=== PATIENT | female | born 1995 | race Caucasian/White ===

== ENCOUNTER → 2023-12-18 14:57 | Outpatient (REF) | payer OTHER, SELFPAY | LOC: RAD 14:57 | PROVIDERS: ATTENDING PHYSICIAN Nurse Practitioner Family; FAMILY PHYSICIAN Emergency Medicine | DX: O26.851 Spotting complicating pregnancy, first trimester (principal) | CPT/HCPCS: 76801 ==

== ENCOUNTER → 2024-01-09 07:48 | Outpatient (REF) | payer OTHER, SELFPAY | LOC: PNTC 07:48 | PROVIDERS: ATTENDING PHYSICIAN Obstetrics & Gynecology | DX: O30.049 Twin pregnancy, dichorionic/diamniotic, unspecified trimester (principal); O99.210 Obesity complicating pregnancy, unspecified trimester; O10.019 Pre-existing essential hypertension complicating pregnancy, unspecified trimester | CPT/HCPCS: 76801; 76802; 76813; 76814 ==

== ENCOUNTER → 2024-01-30 13:08 | Outpatient (REF) | payer OTHER, SELFPAY | LOC: PNTC 13:08 | PROVIDERS: ATTENDING PHYSICIAN Obstetrics & Gynecology | DX: O30.039 Twin pregnancy, monochorionic/diamniotic, unspecified trimester (principal); O99.210 Obesity complicating pregnancy, unspecified trimester; O30.049 Twin pregnancy, dichorionic/diamniotic, unspecified trimester; O10.019 Pre-existing essential hypertension complicating pregnancy, unspecified trimester | CPT/HCPCS: 76805; 76810 ==

== ENCOUNTER → 2024-02-16 11:34 | Outpatient (REF) | payer OTHER, SELFPAY ==
--- NOTE | 2024-02-16 11:56 | PN.DIAED06 ---
Meal Plan - Gestational
- Breakfast
Gestational Diabetes Meal Plan Name: 1800 calories
Breakfast - Total Carbohydrate (grams): 30
Breakfast - Starch Carbohydrate: 1
Breakfast - Fruit Carbohydrate: 0
Breakfast - Milk Carbohydrate: 1
Breakfast - Nonstarchy Vegetables: Yes
Breakfast - Meat/Protein: 1
Breakfast - Fat: 2
- Morning Snack
Morning Snack - Total Carbohydrate (grams): 30
Morning Snack - Starch Carbohydrate: 1
Morning Snack - Fruit Carbohydrate: 0
Morning Snack - Milk Carbohydrate: 1
Morning Snack - Nonstarchy Vegetables: Yes
Morning Snack - Meat/Protein: 0.5
Morning Snack - Fat: 0
- Lunch
Lunch - Total Carbohydrate (grams): 45
Lunch - Starch Carbohydrate: 2
Lunch - Fruit Carbohydrate: 1
Lunch - Milk Carbohydrate: 0
Lunch - Nonstarchy Vegetables: Yes
Lunch - Meat/Protein: 2
Lunch - Fat: 1
- Afternoon Snack
Afternoon Snack - Total Carbohydrate (grams): 30
Afternoon Snack - Starch Carbohydrate: 1
Afternoon Snack - Fruit Carbohydrate: 1
Afternoon Snack - Milk Carbohydrate: 0
Afternoon Snack - Nonstarchy Vegetables: Yes
Afternoon Snack - Meat/Protein: 1
Afternoon Snack - Fat: 0
- Dinner
Dinner - Total Carbohydrate (grams): 45
Dinner - Starch Carbohydrate: 2
Dinner - Fruit Carbohydrate: 0
Dinner - Milk Carbohydrate: 1
Dinner - Nonstarchy Vegetables: Yes
Dinner - Meat/Protein: 2
Dinner - Fat: 2
- Evening Snack
Evening Snack - Total Carbohydrate (grams): 30
Evening Snack - Starch Carbohydrate: 1
Evening Snack - Fruit Carbohydrate: 0
Evening Snack - Milk Carbohydrate: 1
Evening Snack - Nonstarchy Vegetables: Yes
Evening Snack - Meat/Protein: 1
Evening Snack - Fat: 1
--- NOTE | 2024-02-16 13:14 | PN.DIAED02 ---
Referral
DSME Class Series Code: GDM
Referred For: Gestational Diabetes Self-Management Training, Medical Nutrition Therapy, Self-Blood Glucose Monitoring
PHI Release Authorization Form Signed: Yes
Demographic
(1) Gestational diabetes mellitus in , unspecified control
Status: Acute
Qualifiers:
Gestational diabetes mellitus control: diet-controlled Trimester: second trimester Qualified Code(s): O24.410 - Gestational diabetes mellitus in , diet controlled
Code(s): O24.419 - Gestational diabetes mellitus in , unspecified control
Patient's primary language-: Estonian
Education: College degree
Occupation: Homemaker
- Social
Primary Support Person: Self & spouse
Glycemic Control
- Blood Glucose Monitoring Assessment
Monitor Brands: Other (Cont[employer] Next)
Time: fasting, after breakfast, after lunch, after dinner
Medical History of Diabetes
Family Diabetes History: Mother
Previous Diabetes Education: Yes
How long ago?: 1-5 years ago
Previous visit with Dietitian: Yes
How long ago?: 1-5 years ago
Reason for visiting a Dietitian:
Gestational Diabetes
Complications/Comorbidity/Specialist: Hypertension
- Female Specific Medical History
Currently ?: Yes
Receiving care?: Yes
Estimated date of Confinement: 07/25/24
Self-Care
- Tobacco Usage
Do you now, or have you ever smoked?: Never smoked
- Alcohol & Drugs Usage
Drinks Alcohol: No
Uses Recreational Drugs: No
Care Plan
- Education Needs
Patient Education Needs: Monitoring, Nutritional management, Preconception care//gestational diabetes management
Recommended Diabetes Training Program based on assessment: Gestational Diabetes Management
- Plan of Care
Plan of Care:
Met with Ms. Deutsch today, , currently at 20 weeks of gestation with twins. Pt here today for medical nutrition therapy. She reports a history of diet-controlled gestational diabetes with her first , was seen by a RD and counseled on
medical Nutrition.
Explained glucose metabolism in body and what occurs during to cause increase blood sugar. Discussed importance of keeping BS well controlled to avoid complications to the babies during and after (macrosomia, hypoglycemia). Explained
to Nelly that she is at increased risk of developing T2DM in the future. Nelly reports that she has a glucose monitor at home and has been monitoring her blood sugars 2 hrs after each meal since dx of GDM but her sugars with her glucometer
have been significantly higher on her Accu-Cheks than on her lab values. These ranged between 25 to 40 mg/dL higher. Therefore, she was provided a new Glucose monitor- [employer] Next and sent scripts to her [facility] in [place], [place].
Provided instructions and reviewed proper testing technique, testing sites and testing pattern, noted for blood sugar of 73 2 hrs after breakfast.
She is aware to continue testing FBS and 2 hr pp each meal. Expected results for FBS <95 mg/dl and 2 hr pp <120 mg/dl.
Nelly states that her diet consists mainly of carbs and some fruits but not a lot of non-starchy veggies. She eats lots of pasta, bread and potatoes for dinner, sometimes burgers for lunch. Explained high carbohydrate diet and macronutrients and
the effect each has on blood sugar.
Provided with 1800 chanda GDM meal plan. She was educated on how to read a nutritional fact label and look at total CHO in relation to serving size. No fruit or fruit juice until noontime. Provided her with a handout on snacks as well as 'Choose Your
Foods' booklet. A Log sheet was provided for her to record her blood sugar results, she will send her 7 day meal log with all her FBG and 2hr Post prandial glucose numbers to this office for review.
In addition, she will send all her glucose readings to Kelsie at [facility] every Monday. She was encouraged to keep a regular activity schedule and will reach out should she require insulin.
== END ==
LOC: DES 11:34
PROVIDERS: ATTENDING PHYSICIAN Obstetrics & Gynecology; FAMILY PHYSICIAN Emergency Medicine
DX: O24.419 Gestational diabetes mellitus in pregnancy, unspecified control (principal)
CPT/HCPCS: 99078

== ENCOUNTER → 2024-02-27 13:15 | Outpatient (REF) | payer OTHER, SELFPAY | LOC: PNTC 13:15 | PROVIDERS: ATTENDING PHYSICIAN Obstetrics & Gynecology | DX: O30.049 Twin pregnancy, dichorionic/diamniotic, unspecified trimester (principal); O99.210 Obesity complicating pregnancy, unspecified trimester; O16.9 Unspecified maternal hypertension, unspecified trimester | CPT/HCPCS: 76811; 76812 ==

== ENCOUNTER → 2024-03-28 13:14 | Outpatient (REF) | payer OTHER, SELFPAY | LOC: PNTC 13:14 | PROVIDERS: ATTENDING PHYSICIAN Obstetrics & Gynecology; PRIMARYCARE PHYSICIAN Emergency Medicine | DX: O30.049 Twin pregnancy, dichorionic/diamniotic, unspecified trimester (principal); O99.210 Obesity complicating pregnancy, unspecified trimester; O10.119 Pre-existing hypertensive heart disease complicating pregnancy, unspecified trimester | CPT/HCPCS: 76816 ==

== ENCOUNTER → 2024-04-29 08:44 | Outpatient (REF) | payer OTHER, SELFPAY | LOC: PNTC 08:44 | PROVIDERS: ATTENDING PHYSICIAN Obstetrics & Gynecology | DX: O99.210 Obesity complicating pregnancy, unspecified trimester (principal); O30.049 Twin pregnancy, dichorionic/diamniotic, unspecified trimester | CPT/HCPCS: 76816 ==

== ENCOUNTER 2024-05-01 20:14 | Observation (INO) | payer OTHER, SELFPAY ==
[2024-05-01 20:32] VITALS: BP 131/83; BMI 35.3
[2024-05-01 21:24] LABS: Glucose - Point of Care 85 mg/dl (70-99)
[2024-05-01 21:28] LABS: Hematocrit 32.3 % (37.0-47.0); Hemoglobin 10.9 g/dL (12.0-16.0); Mean Corp Hgb Conc. 33.7 g/dL (33.0-37.0); Mean Corpuscular Hgb 28.4 pg (27.0-31.0); Mean Corpuscular Volume 84.1 fL (81.0-99.0); Mean Platelet Volume 10.5 fL (7.4-10.4); Platelet Count 239 10^3/uL (130-400); Red Blood Cell Count 3.84 10^6/uL (4.20-5.40); Red Cell Dist. Width 13.1 % (11.5-14.5); White Blood Cell Count 9.4 10^3/uL (4.8-10.8)
[2024-05-01 21:39] LABS: Fibrinogen 517 MG/DL (199-459); PT 14.2 Sec (11.4-14.6)
[2024-05-01 23:19] LABS: Urine Albumin Negative (Neg - Trace); Urine Bilirubin Negative (Negative); Urine Character Clear (Clear); Urine Color Yellow; Urine Glucose Negative (Negative); Urine Ketone 3+ (Negative); Urine Leukocyte Negative (Negative); Urine Nitrite Negative (Negative); Urine Occult Blood Trace (Negative); Urine Urobilinogen Negative (Neg - 1+)
[2024-05-02 00:16] LABS: Urine Mucus Many; Urine Squamous Cell >30 /LPF (Few)
[2024-05-02 00:17] LABS: Urine Bacteria Many (Negative)
== END 2024-05-02 01:31 | disposition home or self-care (01) ==
LOC: LDRP 20:14
PROVIDERS: Student in an Organized Health Care Education/Training Program; ADMITTING PHYSICIAN Obstetrics & Gynecology; FAMILY PHYSICIAN Emergency Medicine
DX: R10.11 Right upper quadrant pain (principal); W01.198A Fall on same level from slipping, tripping and stumbling with subsequent striking against other object, initial encounter; Y93.01 Activity, walking, marching and hiking; Y92.009 Unspecified place in unspecified non-institutional (private) residence as the place of occurrence of the external cause; O24.410 Gestational diabetes mellitus in pregnancy, diet controlled; Z3A.29 29 weeks gestation of pregnancy; O10.013 Pre-existing essential hypertension complicating pregnancy, third trimester; O30.043 Twin pregnancy, dichorionic/diamniotic, third trimester; O99.213 Obesity complicating pregnancy, third trimester
CPT/HCPCS: 81003; 81015; 82962; 85027; 85384; 85461; 85610; 85730; 86850; 86900; 86901; 87086

== ENCOUNTER → 2024-05-22 09:18 | Outpatient (REF) | payer OTHER, SELFPAY | LOC: PNTC 09:18 | PROVIDERS: ATTENDING PHYSICIAN Student in an Organized Health Care Education/Training Program | DX: O30.049 Twin pregnancy, dichorionic/diamniotic, unspecified trimester (principal) | CPT/HCPCS: 59025; 76815 ==

== ENCOUNTER → 2024-05-30 07:47 | Outpatient (REF) | payer OTHER, SELFPAY | LOC: PNTC 07:47 | PROVIDERS: ATTENDING PHYSICIAN Obstetrics & Gynecology | DX: O30.049 Twin pregnancy, dichorionic/diamniotic, unspecified trimester (principal) | CPT/HCPCS: 59025; 76816 ==

== ENCOUNTER → 2024-06-05 07:55 | Outpatient (REF) | payer OTHER, SELFPAY | LOC: PNTC 07:55 | PROVIDERS: ATTENDING PHYSICIAN Obstetrics & Gynecology | DX: O30.049 Twin pregnancy, dichorionic/diamniotic, unspecified trimester (principal) | CPT/HCPCS: 59025; 76815 ==

== ENCOUNTER → 2024-06-13 08:49 | Outpatient (REF) | payer OTHER, SELFPAY | LOC: PNTC 08:49 | PROVIDERS: ATTENDING PHYSICIAN Obstetrics & Gynecology | DX: O30.049 Twin pregnancy, dichorionic/diamniotic, unspecified trimester (principal) | CPT/HCPCS: 59025; 76815 ==

== ENCOUNTER 2024-06-20 08:30 | Observation (INO) | payer OTHER, SELFPAY ==
[2024-06-20 09:00] LABS: % Basophils 0.3 % (0-2); % Eosinophils 0.3 % (0-6); % Immature Granulocytes 0.4 % (0-0.5); % Lymphocytes 28.5 % (20.5-51.1); % Monocytes 6.7 % (1.7-9.3); % Neutrophils 63.8 % (42.2-75.2); Absolute Monocytes 0.5 10^3/uL (0.1-0.6); Absolute Neutrophils 4.6 10^3/uL (1.4-6.5); Hematocrit 35.9 % (37.0-47.0); Hemoglobin 11.3 g/dL (12.0-16.0); Mean Corp Hgb Conc. 31.5 g/dL (33.0-37.0); Mean Corpuscular Volume 82.5 fL (81.0-99.0); Mean Platelet Volume 10.7 fL (7.4-10.4); Nucleated Red Blood Cells % 0 %; Platelet Count 212 10^3/uL (130-400); Red Blood Cell Count 4.35 10^6/uL (4.20-5.40); Red Cell Dist. Width 14.3 % (11.5-14.5); White Blood Cell Count 7.1 10^3/uL (4.8-10.8)
[2024-06-20 09:20] VITALS: BP 146/79; BMI 35.8
[2024-06-20 09:21] LABS: ALT (SGPT) 12 U/L (0-35); AST (SGOT) 19 U/L (14-36); Albumin 3.7 g/dl (3.5-5.0); Alkaline Phosphatase 249 U/L (38-126); Blood Urea Nitrogen 6 mg/dl (7-17); Calcium 9.1 mg/dl (8.4-10.2); Carbon Dioxide 22 mmol/L (22-30); Chloride 106 mmol/L (98-107); Glucose 72 mg/dl (70-99); Potassium 4.1 mmol/L (3.5-5.1); Sodium 137 mmol/L (135-145); Total Bilirubin 0.3 mg/dl (0.2-1.3); Total Protein 6.3 g/dl (6.3-8.2); eGFR > 60.00
[2024-06-20 09:33] LABS: Urine Albumin Negative (Neg - Trace); Urine Bilirubin Negative (Negative); Urine Character Clear (Clear); Urine Color Yellow; Urine Glucose Negative (Negative); Urine Ketone Negative (Negative); Urine Leukocyte Trace (Negative); Urine Nitrite Negative (Negative); Urine Occult Blood Negative (Negative); Urine Urobilinogen Negative (Neg - 1+)
[2024-06-20 09:49] LABS: Protein/creatinine Ratio 0.1; Urine Protein 7 mg/dl
[2024-06-20 10:33] LABS: Urine Squamous Cell >30 /LPF (Few)
[2024-06-20 10:34] LABS: Urine Amorphous Seen; Urine Red Blood Cell 0-2 /HPF (0-2); Urine White Cell 0-2 /HPF (0-5)
== END 2024-06-20 11:00 | disposition home or self-care (01) ==
LOC: PNTC-IN 08:30
PROVIDERS: ADMITTING PHYSICIAN Obstetrics & Gynecology; ATTENDING PHYSICIAN Obstetrics & Gynecology
DX: R10.12 Left upper quadrant pain (principal); Z3A.36 36 weeks gestation of pregnancy; O30.043 Twin pregnancy, dichorionic/diamniotic, third trimester; W01.0XXA Fall on same level from slipping, tripping and stumbling without subsequent striking against object, initial encounter; Y93.01 Activity, walking, marching and hiking; Y92.009 Unspecified place in unspecified non-institutional (private) residence as the place of occurrence of the external cause; O24.410 Gestational diabetes mellitus in pregnancy, diet controlled; O99.213 Obesity complicating pregnancy, third trimester; O10.013 Pre-existing essential hypertension complicating pregnancy, third trimester
CPT/HCPCS: 59025; 76815; 80053; 81003; 81015; 82570; 84156; 85025; 86850; 86900; 86901; G0378

== ENCOUNTER → 2024-06-24 08:19 | Outpatient (REF) | payer OTHER, SELFPAY | LOC: PNTC 08:19 | PROVIDERS: ATTENDING PHYSICIAN Obstetrics & Gynecology | DX: O30.049 Twin pregnancy, dichorionic/diamniotic, unspecified trimester (principal) | CPT/HCPCS: 36415; 59025; 76816; 76820 ==

== ENCOUNTER → 2024-06-27 08:25 | Outpatient (REF) | payer OTHER, SELFPAY | LOC: PNTC 08:25 | PROVIDERS: ATTENDING PHYSICIAN Obstetrics & Gynecology | DX: O30.049 Twin pregnancy, dichorionic/diamniotic, unspecified trimester (principal) | CPT/HCPCS: 59025; 76815 ==

== ENCOUNTER → 2024-07-01 08:25 | Outpatient (REF) | payer OTHER, SELFPAY | LOC: PNTC 08:25 | PROVIDERS: ATTENDING PHYSICIAN Obstetrics & Gynecology; PRIMARYCARE PHYSICIAN Emergency Medicine | DX: O30.049 Twin pregnancy, dichorionic/diamniotic, unspecified trimester (principal) | CPT/HCPCS: 59025; 76815 ==

== ENCOUNTER 2024-07-04 08:08 | Inpatient (IN) | payer OTHER, SELFPAY ==
[2024-07-04 08:32] VITALS: BP 158/104; BMI 36.4
[2024-07-04 09:05] LABS: % Basophils 0.3 % (0-2); % Eosinophils 0.4 % (0-6); % Immature Granulocytes 0.4 % (0-0.5); % Lymphocytes 25.3 % (20.5-51.1); % Monocytes 4.9 % (1.7-9.3); % Neutrophils 68.7 % (42.2-75.2); Absolute Lymphocytes 1.9 10^3/uL (1.2-3.4); Absolute Monocytes 0.4 10^3/uL (0.1-0.6); Absolute Neutrophils 5.1 10^3/uL (1.4-6.5); Hematocrit 35.7 % (37.0-47.0); Hemoglobin 11.2 g/dL (12.0-16.0); Mean Corp Hgb Conc. 31.4 g/dL (33.0-37.0); Mean Corpuscular Hgb 25.5 pg (27.0-31.0); Mean Corpuscular Volume 81.3 fL (81.0-99.0); Mean Platelet Volume 10.7 fL (7.4-10.4); Nucleated Red Blood Cells % 0 %; Platelet Count 248 10^3/uL (130-400); Red Blood Cell Count 4.39 10^6/uL (4.20-5.40); Red Cell Dist. Width 14.6 % (11.5-14.5); White Blood Cell Count 7.4 10^3/uL (4.8-10.8)
[2024-07-04 09:08] LABS: Glucose - Point of Care 69 mg/dl (70-99)
[2024-07-04 09:16] LABS: ALT (SGPT) 16 U/L (0-35); AST (SGOT) 27 U/L (14-36); Albumin 3.7 g/dl (3.5-5.0); Alkaline Phosphatase 280 U/L (38-126); Blood Urea Nitrogen 9 mg/dl (7-17); Carbon Dioxide 19 mmol/L (22-30); Chloride 106 mmol/L (98-107); Estimated Creatinine Clearance > 125 ml/min; Glucose 74 mg/dl (70-99); Potassium 4.3 mmol/L (3.5-5.1); Sodium 134 mmol/L (135-145); Total Bilirubin 0.4 mg/dl (0.2-1.3); Total Protein 6.4 g/dl (6.3-8.2); eGFR > 60.00
[2024-07-04] MEDS: PENICILLIN 110 UNITS IV (09:58)
[2024-07-04] MEDS: PITOCIN 30 UNITS/NSS 500 ML IV (09:59)
[2024-07-04 10:28] LABS: Protein/creatinine Ratio 0.2; Urine Protein 11 mg/dl
[2024-07-04 11:04] LABS: Glucose - Point of Care 74 mg/dl (70-99)
[2024-07-04] MEDS: SUBLIMAZE 100 MCG EPIDURAL (13:30)
[2024-07-04] MEDS: FENTANYL/BUPIVACAINE 100 EPIDURAL (13:30)
[2024-07-04] MEDS: PENICILLIN 55 UNITS IV (14:10)
[2024-07-04] MEDS: TUMS CHEWABLE TABLET 400 MG PO (14:12)
[2024-07-04] MEDS: CYTOTEC 800 MCG RECTAL (16:03)
[2024-07-04] MEDS: TRANEXAMIC ACID 100 IV (16:10)
[2024-07-04] MEDS: HEMABATE 250 MCG IM (16:10)
[2024-07-04 17:03] LABS: % Basophils 0.2 % (0-2); % Eosinophils 0.2 % (0-6); % Immature Granulocytes 0.5 % (0-0.5); % Monocytes 4.7 % (1.7-9.3); % Neutrophils 71.4 % (42.2-75.2); Absolute Monocytes 0.4 10^3/uL (0.1-0.6); Absolute Neutrophils 6.3 10^3/uL (1.4-6.5); Hematocrit 31.2 % (37.0-47.0); Hemoglobin 9.7 g/dL (12.0-16.0); Mean Corp Hgb Conc. 31.1 g/dL (33.0-37.0); Mean Corpuscular Hgb 25.7 pg (27.0-31.0); Mean Corpuscular Volume 82.5 fL (81.0-99.0); Mean Platelet Volume 10.6 fL (7.4-10.4); Nucleated Red Blood Cells % 0 %; Platelet Count 210 10^3/uL (130-400); Red Blood Cell Count 3.78 10^6/uL (4.20-5.40); Red Cell Dist. Width 14.6 % (11.5-14.5); White Blood Cell Count 8.9 10^3/uL (4.8-10.8)
[2024-07-04] MEDS: ANCEF 10 IV (17:17)
[2024-07-04] MEDS: PROCARDIA XL (EXTENDED RELEASE) 30 MG PO (17:34)
[2024-07-04 18:02] LABS: APTT 23.8 Sec (23.4-35.0); Fibrinogen 477 MG/DL (199-459)
[2024-07-04 18:03] LABS: PT 13.7 Sec (11.4-14.6)
[2024-07-04] MEDS: PENICILLIN IV ×2 (18:45→22:30)
[2024-07-05] MEDS: MOTRIN 600 MG PO ×4 (00:34→22:53)
[2024-07-05] MEDS: TYLENOL 650 MG PO ×5 (00:34→22:54)
[2024-07-05 04:25] LABS: Hematocrit 26.9 % (37.0-47.0); Hemoglobin 8.5 g/dL (12.0-16.0); Mean Corp Hgb Conc. 31.6 g/dL (33.0-37.0); Mean Corpuscular Hgb 25.8 pg (27.0-31.0); Mean Corpuscular Volume 81.8 fL (81.0-99.0); Platelet Count 232 10^3/uL (130-400); Red Blood Cell Count 3.29 10^6/uL (4.20-5.40); Red Cell Dist. Width 14.6 % (11.5-14.5); White Blood Cell Count 13.3 10^3/uL (4.8-10.8)
[2024-07-05 04:37] LABS: ALT (SGPT) 13 U/L (0-35); AST (SGOT) 26 U/L (14-36); Albumin 2.8 g/dl (3.5-5.0); Alkaline Phosphatase 199 U/L (38-126); Blood Urea Nitrogen 5 mg/dl (7-17); Calcium 8.5 mg/dl (8.4-10.2); Carbon Dioxide 22 mmol/L (22-30); Chloride 105 mmol/L (98-107); Estimated Creatinine Clearance > 125 ml/min; Glucose 118 mg/dl (70-99); Potassium 3.9 mmol/L (3.5-5.1); Sodium 133 mmol/L (135-145); Total Bilirubin < 0.1 mg/dl (0.2-1.3); Total Protein 5.1 g/dl (6.3-8.2); eGFR > 60.00
[2024-07-05] MEDS: PROCARDIA XL (EXTENDED RELEASE) 30 MG PO (07:45)
[2024-07-05] MEDS: SENOKOT-S 1 TABLET PO (07:45)
[2024-07-05] MEDS: FEOSOL 325 MG PO (07:45)
[2024-07-06] MEDS: MOTRIN 600 MG PO ×2 (05:02→10:55)
[2024-07-06] MEDS: TYLENOL 650 MG PO ×2 (05:02→10:13)
[2024-07-06] MEDS: PROCARDIA XL (EXTENDED RELEASE) 30 MG PO ×2 (08:19→11:09)
[2024-07-06] MEDS: FEOSOL 325 MG PO (08:22)
[2024-07-08 18:05] LABS: Syphilis/T. pallidum Ab Reflex Negative (Negative)
== END 2024-07-06 13:45 | disposition home or self-care (01) | DRG 768 ==
LOC: LDRP 08:08
PROVIDERS: ADMITTING PHYSICIAN Student in an Organized Health Care Education/Training Program; CONSULT PHYSICIAN Anesthesiology; CONSULT PHYSICIAN Nurse Anesthetist, Certified Registered; CONSULT PHYSICIAN Registered Nurse; CONSULT PHYSICIAN Specialist; CONSULT PHYSICIAN Student in an Organized Health Care Education/Training Program
PROC: 0W3R7ZZ Control Bleeding in Genitourinary Tract, Via Natural or Artificial Opening (ICD-10-PCS; 2024-07-04)
PROC: 10E0XZZ Delivery of Products of Conception, External Approach (ICD-10-PCS; 2024-07-04)
PROC: 0KQM0ZZ Repair Perineum Muscle, Open Approach (ICD-10-PCS; 2024-07-04)
PROC: 10907ZC Drainage of Amniotic Fluid, Therapeutic from Products of Conception, Via Natural or Artificial Opening (ICD-10-PCS; 2024-07-04)
PROC: 3E0P7VZ Introduction of Hormone into Female Reproductive, Via Natural or Artificial Opening (ICD-10-PCS; 2024-07-04)
DX: O10.92 Unspecified pre-existing hypertension complicating childbirth (principal); Z37.2 Twins, both liveborn; O72.1 Other immediate postpartum hemorrhage; O30.043 Twin pregnancy, dichorionic/diamniotic, third trimester; Z3A.38 38 weeks gestation of pregnancy; O64.4XX0 Obstructed labor due to shoulder presentation, not applicable or unspecified; O99.214 Obesity complicating childbirth; E66.9 Obesity, unspecified; O24.420 Gestational diabetes mellitus in childbirth, diet controlled; O99.824 Streptococcus B carrier state complicating childbirth; O70.1 Second degree perineal laceration during delivery; O90.81 Anemia of the puerperium; D64.9 Anemia, unspecified
CPT/HCPCS: 88307; 80053; 82570; 82962; 84156; 85025; 85027; 85384; 85610; 85730; 86780; 86850; 86900; 86901

== ENCOUNTER 2024-09-10 09:12 | Emergency (ER) | payer OTHER, SELFPAY ==
[2024-09-10 09:21] VITALS: BP 153/96
[2024-09-10 10:06] LABS: % Basophils 0.5 % (0-2); % Eosinophils 0.9 % (0-6); % Immature Granulocytes 0.6 % (0-0.5); % Lymphocytes 36.3 % (20.5-51.1); % Monocytes 6.2 % (1.7-9.3); % Neutrophils 55.5 % (42.2-75.2); Absolute Eosinophils 0.1 10^3/uL (0-0.7); Absolute Immature Granulocytes 0.1 10^3/uL (0-0.05); Absolute Lymphocytes 3.1 10^3/uL (1.2-3.4); Absolute Monocytes 0.5 10^3/uL (0.1-0.6); Absolute Neutrophils 4.8 10^3/uL (1.4-6.5); Hematocrit 34.1 % (37.0-47.0); Hemoglobin 9.7 g/dL (12.0-16.0); Mean Corp Hgb Conc. 28.4 g/dL (33.0-37.0); Mean Corpuscular Hgb 21.8 pg (27.0-31.0); Mean Corpuscular Volume 76.6 fL (81.0-99.0); Mean Platelet Volume 9.8 fL (7.4-10.4); Nucleated Red Blood Cells % 0 %; Platelet Count 380 10^3/uL (130-400); Red Blood Cell Count 4.45 10^6/uL (4.20-5.40); Red Cell Dist. Width 15.6 % (11.5-14.5); White Blood Cell Count 8.6 10^3/uL (4.8-10.8)
[2024-09-10 10:14] LABS: HCG, Serum Qualitative Screen Negative
[2024-09-10 10:18] LABS: ALT (SGPT) 17 U/L (0-35); AST (SGOT) 18 U/L (14-36); Albumin 4.3 g/dl (3.5-5.0); Alkaline Phosphatase 78 U/L (38-126); Blood Urea Nitrogen 17 mg/dl (7-17); Calcium 9.8 mg/dl (8.4-10.2); Carbon Dioxide 24 mmol/L (22-30); Chloride 104 mmol/L (98-107); Glucose 94 mg/dl (70-99); Lipase 112 U/L (23-300); Potassium 4.4 mmol/L (3.5-5.1); Sodium 137 mmol/L (135-145); Total Bilirubin 0.4 mg/dl (0.2-1.3); Total Protein 6.9 g/dl (6.3-8.2); eGFR > 60.00
[2024-09-10 10:51] LABS: Anisocytosis 1+; Normal RBC Morphology No; Ovalocytes Slight
--- NOTE | 2024-09-10 11:12 | ED.GENMED ---
History of Present Illness
General
Chief Complaint: Abdominal Pain
Source: patient
Exam Limitations: none
Time Seen by Provider: 09/10/24 10:47
Nursing documentation reviewed up to this point in time: agreed with
History of Present Illness
History of Present Illness:
Patient is a 29 old female who is 2 months (vaginally delivered twins July 04) presents for sudden onset of right lower quadrant pain that started at 9 AM. She has had this similar pain in the past with a ruptured ovarian cyst. She
reports she presented because pain was significant for 30 minutes. She has since taken ibuprofen and pain has improved.
She started oral control 2 to 3 weeks ago. She denies any back pain UTI symptoms. She denies any back pain. Denies any recent fever or chills.
Past History
Past History
ED Past Medical History: Other (Ovarian cysts)
ED Past Surgical History: Gynecological
Social History
Tobacco: Non-smoker
Alcohol: Occasional
Personal: Single
Living: with roommate
Review of Systems
Review of Systems
Allergies reviewed?: Yes
All Other Systems: ROS reviewed and negative except as documented in HPI and ROS
Constitutional: Reports no symptoms; Denies fever, fatigue or chills
Respiratory: Reports no symptoms
Cardiac: Reports no symptoms
ABD/GI: Reports abdominal pain and other (now improved ); Denies nausea, vomiting or diarrhea
: Reports no symptoms; Denies flank pain, urgency or discharge
Musculoskeletal: Reports no symptoms
Skin: Reports no symptoms
Neurological: Reports no symptoms
Psychiatric: Reports no symptoms
Phy Exam
General Physical Exam
General Presentation: no apparent distress
General age: appears stated age
General Skin: warm and dry
General Habitus: normal
General Mental: alert
General Hydration: appears well hydrated
Gastrointestinal Exam
Gastrointestinal Exam: non tender and soft
Neurological Exam
Neurological Exam: alert and oriented x3
Musculoskeletal Exam
Musculoskeletal Exam: full ROM
Skin Exam
Skin Exam: normal color and warm/dry
Psychiatric Exam
Psychiatric Exam: normal mood/affect
Course
Orders/Labs/Results
Orders:
Orders
09/10/24 09:25
Test Result ONCE
09/10/24 09:28
Complete Blood Count/With Diff Urgent
Comprehensive Metabolic Panel Urgent
HCG, Serum Qualitative Screen Urgent
Comment: Notify provider if positive test present
Lipase Urgent
09/10/24 11:12
US Pelvis W Transvag Combined Urgent
Reason For Exam: sudden rlq pain
Abnormal Lab Results
09/10/24
09:28
Hgb 9.7 L g/dL
(12.0-16.0)
Hct 34.1 L %
(37.0-47.0)
MCV 76.6 L fL
(81.0-99.0)
MCH 21.8 L pg
(27.0-31.0)
MCHC 28.4 L g/dL
(33.0-37.0)
RDW 15.6 H %
(11.5-14.5)
Abs Immat Gran (auto) 0.1 H 10^3/uL
(0-0.05)
Immature Gran % 0.6 H %
(0-0.5)
09/10/24 09:28
09/10/24 09:28
Vital Signs
Initial and Last Documented VS:
Initial Vital Signs
Temp Pulse Resp BP Pulse Ox
98.7 F 60 16 153/96 98
09/10/24 09:21 09/10/24 09:21 09/10/24 09:21 09/10/24 09:21 09/10/24 09:21
Last Documented Vital Signs
Temp Pulse Resp BP Pulse Ox
98.7 F 53 18 113/77 100
09/10/24 09:21 09/10/24 12:18 09/10/24 12:18 09/10/24 12:18 09/10/24 12:18
Accountant Systems consulted with Physician
Accountant Systems consulted with physician?: Yes
Name of Physician Consulted: kevin
MDM/Problems Addressed
Differential Diagnosis Includes:
Not limited to ovarian cyst; ovarian torsion
MDM/Problems Addressed:
As documented patient is 2 months and had sudden onset of right lower quadrant pain which lasted for 30 minutes prior to arrival she had some mild light bleeding with discomfort. She reported that it felt similar to an ovarian cyst in
the past. On my exam she had no abdominal discomfort and was feeling much better.
Pelvic ultrasound was done and unremarkable with good intact blood flow to each ovary. No free fluid is seen within the pelvis. Patient's pain is resolved unlikely appendicitis. She denies any recent fevers and is afebrile with a normal white
count she denies any UTI symptoms; patient did void on her own and did not give a urine specimen however with no UTI symptoms we will hold off on urine.
With completely normal ultrasound discussed close outpatient follow-up with BIOLOGY SPECIMEN TECHNICIAN; unlikely intermittent torsion.
pt well appearing and stable for d/c home with return if any worsening of symptoms .
*Radiology
Radiology exam reviewed: radiology read reviewed
*Pulse Oximetry
Patient hypoxic: no
*Critical Care Note
Total Time (30-74mins, 75-104mins- exclusive of procedures): Not Applicable
ED Attending Note
-
Portions of this chart may have been created with voice recognition software.� Occasional wrong word or��sound alike� substitutions may have occurred due to the inherent limitations of voice recognition software.
Discharge Plan
Departure
Patient Disposition: Home (Routine Discharge)
Date of Disposition: 09/10/24
Time of Disposition: 12:48
Patient with high blood pressure during this ER visit?: Yes
Condition: Fair
Covid-19: Not Applicable
Discharge Problem:
Pelvic pain
Instructions: Pelvic Pain ED, Abdominal Pain
Prescriptions:
No Action
prenat.vits,chanda,[id number] Tablet
1 tab DAILY
aspirin 81 mg Tablet,Chewable
81 mg PO DAILY
famotidine 20 mg Tablet
20 mg PO BID PRN (Reason: GERD)
acetaminophen 325 mg Tablet
650 mg PO Q4HPRN PRN (Reason: mild pain) Qty: 0 0RF
sennosides-docusate sodium 8.6-50 mg Tablet
1 tab PO DAILYPRN PRN (Reason: constipation) Qty: 0 0RF
nifedipine 30 mg Tablet Extended Release
30 mg PO DAILY Qty: 30 1RF
ferrous sulfate [FeroSul] 325 mg (65 mg iron) Tablet
325 mg PO DAILY Qty: 0 0RF
calcium carbonate [Calcium Antacid] 200 mg calcium (500 mg) Tablet,Chewable
400 mg PO Q6HPRN PRN (Reason: indigestion) Qty: 0 0RF
ibuprofen 600 mg Tablet
600 mg PO Q6HPRN PRN (Reason: moderate pain/cramps) Qty: 40 0RF
nifedipine 30 mg Tablet Extended Release
30 mg PO NOW Qty: 0 0RF
Referrals:
Opal Anderson MD [Family Provider] -
Activity Restrictions/Additional Instructions:
Follow-up with your OBGYN in the next several days for reevaluation of your symptoms.
return if any worsening of symptoms.
Interventions
Interventions:
*Risk Screen - Suicide Last Done: 09/10/24 09:21
*General Assessment Last Done: 09/10/24 12:18
*Neglect/Abuse Screening Last Done: 09/10/24 09:21
*ED- Fall Risk Assessment Last Done: 09/10/24 12:15
*ED COVID-19 Vaccine History Last Done: 09/10/24 12:15
XB-Bbounf-Xzohyctust Assessment Last Done: 09/10/24 12:15
Discharge Date and Time
Print Language: BRAZILIAN
[2024-09-10 12:15] VITALS: BMI 33.5
[2024-09-10 12:18] VITALS: BP 113/77
[2024-09-10 13:13] VITALS: BP 103/69
--- NOTE | 2024-09-10 13:13 | EDRN ---
Reviewed discharge instructions with patient. Verbalized understanding.
== END 2024-09-10 13:14 | disposition home or self-care (01) ==
LOC: EMR 09:12
PROVIDERS: EMERGENCY PHYSICIAN Emergency Medicine; FAMILY PHYSICIAN Emergency Medicine
DX: R10.2 Pelvic and perineal pain (principal); R10.31 Right lower quadrant pain; N93.9 Abnormal uterine and vaginal bleeding, unspecified; R03.0 Elevated blood-pressure reading, without diagnosis of hypertension; Z88.8 Allergy status to other drugs, medicaments and biological substances
CPT/HCPCS: 99284; 76830; 76856; 80053; 83690; 84703; 85025